=== PATIENT | female | born 1945 | race Caucasian/White ===

== ENCOUNTER 2018-06-07 09:50 | Observation (INO) | payer OTHER, MEDICARE ==
[2018-06-07] MEDS ORDERED: PHENAZOPYRIDINE HCL 200 MG TAB PO ONE (10:11)
[2018-06-07] MEDS ORDERED: ACETAMINOPHEN 500 MG TAB PO ONE (10:11)
[2018-06-07] MEDS ORDERED: ceFAZolin 2 GM/DEXTROSE 100 ML IV ONE (10:11)
[2018-06-07] MEDS ORDERED: GABAPENTIN 300 MG CAP PO ONE (10:11)
[2018-06-07] MEDS ORDERED: LR 1,000 ML IV ONE (10:12)
[2018-06-07] MEDS ORDERED: LIDOCAINE 1% 2 ML INJ ID PRN (10:21)
[2018-06-07] MEDS ORDERED: BUPIVACAINE/EPI 0.5% 30 ML SDV ONE (11:07)
--- NOTE | 2018-06-07 11:16 | PDHPUP ---
History & Physical Update H&P update statement: This history and physical update is based on an assessment of the patient which was completed after admission or registration (within 24 hours), but prior to the surgery/procedure. H&P update: H&P reviewed & patient examined, no change in patient's condition since H&P completed
--- NOTE | 2018-06-07 11:37 | PDANEPAE ---
ANE History of Present Illness 73 year old for hysterectomy ANE Past Medical History - Cardiovascular History Hx Hypertension: Yes Hx Arrhythmias: Yes Hx Chest Pain: No Hx Coronary Artery / Peripheral Vascular Disease: Yes Hx CHF / Valvular Disease: No Hx Palpitations: No Cardiovascular History Comment: cad. mi with stent placed. followed by dr riggs at [facility]- will obtain records - Pulmonary History Hx COPD: No Hx Asthma/Reactive Airway Disease: No Hx Recent Upper Respiratory Infection: No Hx Oxygen in Use at Home: No Hx Sleep Apnea: No Sleep Apnea Screening Result - Last Documented: Negative - Neurologic History Hx Cerebrovascular Accident: No Hx Seizures: No Hx Dementia: No - Endocrine History Hx Diabetes: No Endocrine History Comment: hypothyroidism - Renal History Hx Renal Disorders: Yes Renal History Comment: bladder prolapse currently - Liver History Hx Hepatic Disorders: No - Neurological & Psychiatric Hx Hx Neurological and Psychiatric Disorders: No - Cancer History Hx Cancer: No - Congenital Disorder History Hx Congenital Disorders: No - GI History Hx Gastrointestinal Disorders: Yes Gastrointestinal History Comment: rectal prolapse currently. IBS- uses ibuprofen for inflammation - Other Health History Other Health History: vaginal prolapse currently. wears reading glasses - Chronic Pain History Chronic Pain: No - Surgical History Prior Surgeries: tonsillectomy as child. cardiac stent x1 ANE Review of Systems Review of systems is: negative Review of Systems: - Exercise capacity METS (RN): 4 METS ANE Patient History - Allergies Allergies/Adverse Reactions: No Known Allergies Allergy (Verified 05/24/18 12:06) - Home Medications Home medications: home medication list seen and reviewed Home Medications: Atorvastatin Calcium [Lipitor 40 mg (*)] 80 mg PO HS 05/23/18 [Last Taken 1 Week Ago ~05/31/18] Herbals/Supplements -Info Only 1 ea PO DAILY 05/23/18 [Last Taken 1 Week Ago ~] Ibuprofen [Motrin (*)] 800 mg PO DAILY 05/23/18 [Last Taken 06/07/18] Metoprolol Succinate Xr [Toprol Xl 25 mg (*)] 25 mg PO HS 05/23/18 [Last Taken 1 Week Ago ~05/31/18] Multivitamins [Multivitamin (*)] 1 each PO DAILY 05/23/18 [Last Taken 1 Week Ago ~05/31/18] Nature Thyroid 120mg 120 mg PO DAILY 05/23/18 [Last Taken 06/07/18] Cmp Estradiol Cream 1 mat TP Q2D 05/24/18 [Last Taken 2 Days Ago ~06/05/18] P 180mg/E2 1mg/Test 1mg Tab 1 each PO HS 05/24/18 [Last Taken 1 Day Ago ~] - NPO status NPO Since - Liquids (Date): 06/07/18 NPO Since - Liquids (Time): 09:00 NPO Since - Solids (Date): 06/06/18 NPO Since - Solids (Time): 20:00 - Anes Hx Anes Hx: no prior problems - Smoking Hx Smoking Status: Former smoker - Alcohol Use Alcohol Use: Occasionally - Family Anes Hx Family Anes Hx: none Family Hx Anesthesia Complications: none ANE Labs/Vital Signs - Vital Signs Blood Pressure: 123/90 Heart Rate: 85 Respiratory Rate: 22 O2 Sat (%): 97 Height: 162.56 cm Weight: 59.874 kg ANE Physical Exam - Airway Neck exam: FROM Mallampati Score: Class 1 Mouth exam: normal dental/mouth exam - Pulmonary Pulmonary: no respiratory distress - Cardiovascular Cardiovascular: regular rate and rhythym - ASA Status ASA Status: II ANE Anesthesia Plan Anesthesia Plan: general endotracheal anesthesia
[2018-06-07] MEDS ORDERED: ROCURONIUM 50 MG/5 ML VIAL ONE (11:58)
[2018-06-07] MEDS ORDERED: DEXAMETHASONE 4 MG/ML VIAL ONE (11:58)
[2018-06-07] MEDS ORDERED: LIDOCAINE 2% 2 ML INJ ONE (11:59)
[2018-06-07] MEDS ORDERED: fentaNYL 100 MCG/2 ML INJ ONE ×2 (11:59→12:26)
[2018-06-07] MEDS ORDERED: PROPOFOL 200 MG/20 ML VIAL ONE (11:59)
[2018-06-07] MEDS ORDERED: HYDROmorphONE/DILAUDID 2 MG/ML INJ ONE ×2 (12:38→13:41)
[2018-06-07] MEDS ORDERED: oxyCODONE IR 5 MG TAB PO PRN (13:57)
[2018-06-07] MEDS ORDERED: fentaNYL 100 MCG/2 ML INJ IVP PRN (13:57)
[2018-06-07] MEDS ORDERED: HYDROmorphONE/DILAUDID 1 MG/ML INJ IVP PRN ×2 (13:57→14:08)
[2018-06-07] MEDS ORDERED: NALOXONE HCL 0.4 MG/ML INJ IVP PRN (13:57)
[2018-06-07] MEDS ORDERED: ONDANSETRON 4 MG/2 ML VIAL IVP PRN ×2 (13:57→14:08)
[2018-06-07] MEDS ORDERED: PROMETHAZINE HCL 25 MG/ML INJ IVP PRN (13:57)
[2018-06-07] MEDS ORDERED: HYDROCODONE/APAP 5/325 TAB PO PRN (14:08)
[2018-06-07] MEDS ORDERED: ONDANSETRON DISINTEGRATING 4 MG TAB PO PRN (14:08)
--- NOTE | 2018-06-07 14:08 | POSTOPPROG ---
Post Op Note Date of Operation: 06/07/18 Surgeon: Kirill Lopez Hazardous Materials Analyst: Paula Alvarez Anesthesia: GET(General Endotracheal) Pre-op Diagnosis: Uterovaginal prolapse Post-op Diagnosis: Same Procedure: Robotic hyst/BSO, sacrocolpopexy, TOT sling, cysto Inf/Abcess present in the surg proc area at time of surgery?: No EBL: Minimal Complications: None
[2018-06-07] MEDS ORDERED: LR 1,000 ML IV SCH (14:30)
[2018-06-07] MEDS ORDERED: NALOXONE HCL 0.4 MG/ML INJ ONE (14:51)
--- NOTE | 2018-06-07 14:57 | GOP ---
[f rep st] OPERATIVE REPORT DATE OF OPERATION: 06/07/2018 SURGEON: Kirill Lopez MD NET WASHER: Paula Alvarez CFA. ANESTHESIA: General. PREOPERATIVE DIAGNOSIS: 1. Cystocele. 2. Rectocele. 3. Uterine prolapse. 4. Stress urinary incontinence. POSTOPERATIVE DIAGNOSIS: 1. Cystocele. 2. Rectocele. 3. Uterine prolapse. 4. Stress urinary incontinence. PROCEDURE PERFORMED: FINDINGS: SPECIMENS: Uterus, bilateral tubes, and ovaries. ESTIMATED BLOOD LOSS: Scant. DESCRIPTION OF PROCEDURE: The patient was taken to the operating room. She was identified. General anesthesia was administered and thought to be adequate. She was placed in the lithotomy position an d prepared and draped in normal sterile fashion. A Paige catheter was placed in her bladder. An 8 mm infraumbilical incision was made with a scalpel. The Veress needle with the CO2 gas flowing was advanced into the peritoneal cavity. The abdomen was then insufflated with carbon dioxide gas. The 8 mm trocar followed by the laparoscope were then inserted. The upper abdomen was unremarkable w ith the exception of diffuse diverticulosis of the large intestine. Photos were taken. Two lower po rts were placed on either side under direct visualization. She then was placed in Trendelenburg posi tion and the da Agustina robot docked on the left side. The instruments were brought into the abdominal cavity under direct visualization. The left round ligament was divided. The anterior leaf of the b road ligament was incised toward the bifurcation of the left common iliac vessels. A window was crea ray in the posterior leaf anterior to the left ureter to skeletonize the infundibulopelvic vessels. They were then cauterized and transected. The anterior leaf of the broad ligament was then incised o mp the left uterine vessels and across the cervix. The bladder was gently dissected off the cervix and upper vagina. The left uterine vasculature was then cauterized and transected. The exact same p rocedure was performed on the patient's right side. The uterus was then bivalved to aid in removal t hrough the umbilicus. The uterus and upper three-fourths of the cervix were amputated from the lower 4th of the cervix with the hot bassam. The specimen was placed in the right upper quadrant for late r removal. The colpo probe was placed in the vagina. The bladder was further dissected off the anterior vaginal wall down to the level of the bladder neck. The rectovaginal space was then entered and the rectum dissected off the posterior vaginal wall down to the level of the perineal body. Measurements were t hen obtained and the mesh trimmed to size. The sigmoid colon was then retracted laterally. The peritoneum over the promontory was incised and t he fat pad gently dissected off the anterior longitudinal ligament. The mesh was then brought into t he abdominal cavity. Three sutures of 4-0 [place] were used to attach the distal posterior mesh to the perineal body. Two additional rows of [place] sutures were placed posteriorly. Three rows were placed anteriorly to suture the anterior mesh down to the level of bladder neck and laterally to the paravaginal tissue. The colpo probe was then removed. The sacral arm of the mesh was then placed o mp the promontory and the tension adjusted to resolve the cystocele and rectocele without undue tens ion on the vagina. Two sutures of 2-0 [place] were used to attach the sacral arm of the mesh to the anterior longitudinal ligament at the level of the 1st sacral vertebral body below the intervertebra l disk space. Excess mesh was then trimmed. The peritoneum was then closed over the entire mesh wit h 3-0 V-Loc suture. The robot was then undocked. The specimen removed through the umbilicus. The f ascia was closed with 0 Vicryl, skin with 4-0 Monocryl. A mid urethral incision was then made with a scalpel. Tunnels were created bilaterally out to the ob turator internus muscles. Skin incisions were made over the obturator notches. The Halo trocar was placed through the left skin incision, redirected around the ischial pubic rami and out through the v aginal incision using a vaginal finger as a guide. The same procedure was performed on the patient's right side. The sling was then adjusted to allow a small mid urethral gap. Cystoscopy was then per formed. The sling was noted to be just underneath the muscularis at the level of bladder neck. Deci mena was made to remove the sling. It was gently grasped and removed. The vaginal incision was then closed with 0 Vicryl, skin with 4-0 Monocryl. Vaginal packing was then placed. Anesthesia was reve rsed and patient taken to PACU awake in stable condition. PROCEDURES: 1. Robotic-assisted laparoscopic hysterectomy, bilateral salpingo-oophorectomy. 2. Sacral colpopexy with mesh. 3. Repair of cystocele and rectocele. 4. Transobturator sling. 5. Cystoscopy. COMPLICATIONS: None. DISPOSITION: Patient stable to PACU. /[id number]/MODL
[2018-06-07] MEDS ORDERED: ONDANSETRON 4 MG/2 ML VIAL ONE (15:07)
[2018-06-07] MEDS ORDERED: PROMETHAZINE HCL 25 MG/ML INJ ONE (15:11)
--- NOTE | 2018-06-07 15:40 | POSTANESTH ---
Post Anesthetic Evaluation Cardiovascular Status: Normal, Stable Respiratory Status: Normal, Stable Level of Consciousness/Mental Status: Can Participate in Eval, Moderately Sleepy Pain Control: Adequate, Prn Tx Ordered Nausea/Vomiting Control: Adequate, Prn Tx Ordered Complications Possibly Related to Anesthesia: Other, See Comments (Pt stable on arrival to PACU. Upon removal of OA by nursing staff, pt appeared to obstruct airway with stridor and desaturation. Nursing staff gave PP with ambu and called for help. Upon arrival pt was tachycardic with HR 170, confused and disarthric. Pt given 100% nonrebreather and then 80 mcg, 40 mcg narcan. Pt became more response. HR decreased to 105, clear SR, one more tachy event to 155 aprox. 60 seconds. Hypertensive during event. Pt became progesssively calmer with stable VS HR 73, BP 118/72, sat 95 on NC. Limited neuro exam normal. 12 lead EKG NSR with T wave inversions v2-v6. Possible airway event, verses cardiac event. Possible neuro event. Hospitalist taking over care and pt being transfered to ICU.)
[2018-06-07] MEDS ORDERED: NS 1,000 ML IV SCH (15:45)
[2018-06-07] MEDS ORDERED: PANTOPRAZOLE SODIUM 40 MG VIAL IVP SCH (15:45)
--- NOTE | 2018-06-07 15:50 | PDGENHP ---
History and Physical - Chief Complaint Hypotension/tachycardia - History of Present Illness Patient is a 73-year-old female admitted for a laparoscopic hysterectomy who postoperatively developed hypotension/tachycardia and hypoxia. Per report from the anesthesiologist the surgery went uneventfully. Postoperatively she was somewhat somnolent. Her oral airway was removed in the PACU and subsequently she desatted to the 70s. Per the nurses she developed laryngeal spasm and the anesthesiologist came to the bedside. They bag masked her few times and her oxygen saturations normalized however she developed tachycardia with rate into the 170s. The tachyarrhythmia was transient resolved spontaneously however the patient was still somnolent. She was given a dose of 0.8 of Narcan and then another of 0.4 which was effective at waking the patient up. At that point her vital signs normalized. During my interview in the PACU the patient is resting quietly. Vital signs are normal she is still somnolent however. The nurses attribute this to her having just received a dose of Phenergan. She is unable to provide any history. History Information - Allergies/Home Medication List Allergies/Adverse Reactions: No Known Allergies Allergy (Verified 05/24/18 12:06) Home Medications: Atorvastatin Calcium [Lipitor 40 mg (*)] 80 mg PO HS 05/23/18 [Last Taken 1 Week Ago ~05/31/18] Herbals/Supplements -Info Only 1 ea PO DAILY 05/23/18 [Last Taken 1 Week Ago ~] Ibuprofen [Motrin (*)] 800 mg PO DAILY 05/23/18 [Last Taken 06/07/18] Metoprolol Succinate Xr [Toprol Xl 25 mg (*)] 25 mg PO HS 05/23/18 [Last Taken 1 Week Ago ~05/31/18] Multivitamins [Multivitamin (*)] 1 each PO DAILY 05/23/18 [Last Taken 1 Week Ago ~05/31/18] Nature Thyroid 120mg 120 mg PO DAILY 05/23/18 [Last Taken 06/07/18] Cmp Estradiol Cream 1 mat TP Q2D 05/24/18 [Last Taken 2 Days Ago ~06/05/18] P 180mg/E2 1mg/Test 1mg Tab 1 each PO HS 05/24/18 [Last Taken 1 Day Ago ~] I have personally reviewed and updated: family history, medical history, social history, surgical history - Past Medical History coronary artery disease, myocardial infarction (CAD, with stemi in January 2014 , complicated by Vifb arrest. SCAR placed to LAD. CHF post OH with return of LVEF. ) Additional medical history: Coronary artery disease, hypertension, hypothyroid, myocardial infarction, arthritis, osteoporosis - Surgical History Additional surgical history: Drug-eluting stent placed to the LAD. Tonsillectomy - Family History Positive for: CAD - Social History Smoking Status: Former smoker Alcohol Use: Occasionally Review of Systems Review of Systems: Patient is somnolent and unable to provide review of systems Physical Exam Physical Exam: Temp Pulse Resp BP Pulse Ox 36 C 85 22 H 123/90 H 97 06/07/18 14:16 06/07/18 11:37 06/07/18 11:37 06/07/18 11:37 06/07/18 11:37 O2 (L/minute) 6 Constitutional: no apparent distress Eyes: PERRL Ears, Nose, Mouth, Throat: moist mucous membranes, hearing normal Cardiovascular: regular rate and rhythym Respiratory: no respiratory distress Gastrointestinal: normoactive bowel sounds Genitourinary: thapa in urethra Skin: warm Musculoskeletal: generalized weakness (somnolent. ) Neurologic: other (somnolent and unable to participate in exam. no visible focal deficits. ) Psychiatric: other (sedated postoperatively. ) Lymph, Heme, Immunologic: no cervical LAD Lab Data & Imaging Review 06/07/18 17:00 06/07/18 17:00 POC Glucose 171 mg/dL (70-100) H 06/07/18 14:52 Assessment & Plan Assessment: 73-year-old female past medical history coronary disease who developed transient tachycardia and hypotension in the PACU after hysterectomy Tachycardia/abnormal ECG- seems to have resolved spontaneously. rhythm strip reviewed, and pre and post op ECG reviewed. She has new twi in lateral leads on ecg. May be secondary to post op hypoxia. Per nursing patient self stopped her lopressor a week prior to surgery. currently normotensive -repeat ECG -stat troponin -TTE in am -CBC -BMP -Monitor in ICU on telemetry -Cardiology consultation Hypoxia- resolved. Likely due to laryngospasm after taking out oral air way possible compounded by narcotics and anesthesia. Currently saturating well. She does have crepitus on examination in her chest which is likely 2/2 to insufflation during laparoscopy. Will check a CXR to ensure no other pathology Somnolence- likely due to anesthesia and narcotics. per report she woke up with narcan transiently but became somnolent again. Currently is arousable, oriented to date and place and person. -minimize narcotics -if develops respiratory depression, give narcan and consider narcan gtt. CAD- hx of stemi with SCAR placed to LAD in 2013, complicated by Vfib arrest and cardiogenic shock. Her EF was initially 40-50% but per records she recovered normal LVEF on most recent TTE. On asa 81, lipitor 80, and toprol XL 25. Last TTE in 2014. -resume asa, statin, bb when pressures normalized uterine prolapse- status post laparascopic SUNSHINE. management per gynecology. PPX- SCDs, No heparin Fluids- NS Lytes- checking now Nutrition- NPO until more awake Cor- Full per chart review Dispo- monitor in ICU for hypoxia, tachycardia, and new ecg changes. I spent 40 minutes of critical care time on management of this patient with over half spent on direct patient care.
--- NOTE | 2018-06-07 16:49 | CPEKG ---
Test Reason : OPEN Blood Pressure : / mmHG Vent. Rate : 076 BPM Atrial Rate : 076 BPM P-R Int : 166 ms QRS Dur : 095 ms QT Int : 400 ms P-R-T Axes : 081 082 062 degrees QTc Int : 450 ms Sinus rhythm Probable left atrial enlargement Borderline right axis deviation ST depression anterior-lateral leads. Confirmed by Adonay Teixeira ([id number]) on 06/07/2018 4:49:08 PM Referred By: Arslan Mccarthy Confirmed By:Adonay Teixeira
[2018-06-07] MEDS: KETOROLAC 15 MG/1 ML SDV IVP SCH ×2 (17:17→23:21)
[2018-06-07 17:26] LABS: PLATELET COUNT 269 10^3/uL (150-400)
[2018-06-07] MEDS: SIMETHICONE 80 MG TAB CHEW PO SCH ×2 (19:37→20:49)
[2018-06-07] MEDS: DOCUSATE SODIUM 100 MG CAP PO SCH (20:48)
[2018-06-07] MEDS ORDERED: METOPROLOL SUCCINATE XR 25 MG TAB PO SCH (21:00)
[2018-06-08] MEDS: KETOROLAC 15 MG/1 ML SDV IVP SCH ×2 (05:48→11:18)
[2018-06-08 06:33] LABS: PLATELET COUNT 253 10^3/uL (150-400)
--- NOTE | 2018-06-08 07:28 | PDCARCONS ---
Cardiology Consult Reason for Consult: Late dictation, patient was seen 06/07/2018 at 6:00 p.m. Abnormal ECG Chief Complaint: Patient offers no complaints, daughter at bedside Requesting Physician: Dr. Arslan Clifton History of Present Illness: 73-year-old female, prior history of coronary artery disease status post acute NE, status post stenting to LAD. She is usually followed up at [facility] She was here for a routine laparoscopic hysterectomy, developed transient tachycardia and hypotension in PACU associated with hypoxia and laryngospasm. Her heart rate was briefly in the 170s. ECG was done which showed anterolateral ST abnormalities. A troponin level was obtained which was elevated and therefore I was called to consult. I visited with the patient in the ICU. Patient's daughter was present. Patient was somnolent but arousable and on repeated questioning denied any chest discomfort or any other complaints. History Information - Allergies/Home Medication List Allergies/Adverse Reactions: No Known Allergies Allergy (Verified 05/24/18 12:06) Home Medications: Atorvastatin Calcium [Lipitor 40 mg (*)] 80 mg PO HS 05/23/18 [Last Taken 1 Week Ago ~05/31/18] Herbals/Supplements -Info Only 1 ea PO DAILY 05/23/18 [Last Taken 1 Week Ago ~] Ibuprofen [Motrin (*)] 800 mg PO DAILY 05/23/18 [Last Taken 06/07/18] Metoprolol Succinate Xr [Toprol Xl 25 mg (*)] 25 mg PO HS 05/23/18 [Last Taken 1 Week Ago ~05/31/18] Multivitamins [Multivitamin (*)] 1 each PO DAILY 05/23/18 [Last Taken 1 Week Ago ~05/31/18] Nature Thyroid 120mg 120 mg PO DAILY 05/23/18 [Last Taken 06/07/18] Cmp Estradiol Cream 1 mat TP Q2D 05/24/18 [Last Taken 2 Days Ago ~06/05/18] P 180mg/E2 1mg/Test 1mg Tab 1 each PO HS 05/24/18 [Last Taken 1 Day Ago ~] I have personally reviewed and updated: family history, medical history, social history Past Medical History: - Past Medical History coronary artery disease - Social History Smoking Status: Former smoker Alcohol Use: Occasionally Physical Exam Physical Exam: Temp Pulse Resp BP Pulse Ox 36.9 C 60 15 107/65 98 06/08/18 04:00 06/08/18 06:00 06/08/18 06:00 06/08/18 06:00 06/08/18 06:00 O2 (L/minute) 3 FIO2 (%) 3 Constitutional: no apparent distress, appears nourished Eyes: PERRL, EOMI Ears, Nose, Mouth, Throat: moist mucous membranes, hearing normal Cardiovascular: regular rate and rhythym, systolic murmur Respiratory: no respiratory distress Gastrointestinal: normoactive bowel sounds Genitourinary: no bladder fullness Skin: warm Neurologic: AAOx3 Psychiatric: interacting appropriately, not anxious, not encephalopathic Lab and Imaging 06/08/18 06:00 06/08/18 06:00 WBC 17.43 10^3/uL (3.80-9.50) H 06/08/18 06:00 RBC 4.03 10^6/uL (4.18-5.33) L 06/08/18 06:00 Hgb 11.9 g/dL (12.6-16.3) L 06/08/18 06:00 Hct 35.3 % (38.0-47.0) L 06/08/18 06:00 MCV 87.6 fL (81.5-99.8) 06/08/18 06:00 MCH 29.5 pg (27.9-34.1) 06/08/18 06:00 MCHC 33.7 g/dL (32.4-36.7) 06/08/18 06:00 RDW 13.5 % (11.5-15.2) 06/08/18 06:00 Plt Count 253 10^3/uL (150-400) 06/08/18 06:00 MPV 10.0 fL (8.7-11.7) 06/08/18 06:00 Neut % (Auto) 82.5 % (39.3-74.2) H 06/08/18 06:00 Lymph % (Auto) 9.2 % (15.0-45.0) L 06/08/18 06:00 Hall % (Auto) 7.8 % (4.5-13.0) 06/08/18 06:00 Eos % (Auto) 0.1 % (0.6-7.6) L 06/08/18 06:00 Baso % (Auto) 0.1 % (0.3-1.7) L 06/08/18 06:00 Nucleat RBC Rel Count 0.0 % (0.0-0.2) 06/08/18 06:00 Absolute Neuts (auto) 14.38 10^3/uL (1.70-6.50) H 06/08/18 06:00 Absolute Lymphs (auto) 1.60 10^3/uL (1.00-3.00) 06/08/18 06:00 Absolute Monos (auto) 1.36 10^3/uL (0.30-0.80) H 06/08/18 06:00 Absolute Eos (auto) 0.01 10^3/uL (0.03-0.40) L 06/08/18 06:00 Absolute Basos (auto) 0.02 10^3/uL (0.02-0.10) 06/08/18 06:00 Absolute Nucleated RBC 0.00 10^3/uL (0-0.01) 06/08/18 06:00 Immature Gran % 0.3 % (0.0-1.1) 06/08/18 06:00 Immature Gran # 0.06 10^3/uL (0.00-0.10) 06/08/18 06:00 RBC/WBC/PLT Morphology TNP 06/07/18 17:00 Platelet Estimate TNP 06/07/18 17:00 Sodium 134 mEq/L (135-145) L 06/08/18 06:00 Potassium 4.7 mEq/L (3.5-5.2) 06/08/18 06:00 Chloride 106 mEq/L (97-110) 06/08/18 06:00 Carbon Dioxide 23 mEq/l (22-31) 06/08/18 06:00 Anion Gap 5 mEq/L (6-14) L 06/08/18 06:00 BUN 10 mg/dL (7-23) 06/08/18 06:00 Creatinine 0.6 mg/dL (0.6-1.0) 06/08/18 06:00 Estimated GFR > 60 06/08/18 06:00 Glucose 96 mg/dL (70-100) 04/04/19 06:00 POC Glucose 171 mg/dL (70-100) H 06/07/18 14:52 Calcium 8.4 mg/dL (8.5-10.4) L 06/08/18 06:00 Phosphorus 4.2 mg/dL (2.5-4.5) 06/07/18 17:00 Magnesium 1.7 mg/dL (1.6-2.3) 06/07/18 17:00 Troponin I 0.338 ng/mL (0.000-0.034) H 06/08/18 06:00 EKG additional interpertation: Sinus rhythm. 1st EKG, paper copy only showed ST depression and T inversions in leads V3 to V6. 2nd ECG showed resolution of T inversions and decreased ST depression, 1 mm, in lead V3 to V6 Telemetry: Normal sinus rhythm Echocardiogram: Pending A/P Assessment: 1. Coronary artery disease, prior ST-elevation NE and LAD stent in 2013, normalization of LV ejection fraction. 2. Mild troponin elevation with anterolateral ST T wave changes 3. Hemodynamically stable Plan: 73-year-old female with above-noted findings and medical history with mild troponin elevation. ECG changes that were present previously in the PACU are resolving. She is hemodynamically stable. She denies chest discomfort. Mild elevation in troponin likely related to global ischemia related to hypotension and hypoxia in the postoperative state. Recommendations: 1. Resume aspirin. Resume beta-blockers . 2. Hold off on systemic anticoagulation given recent surgery and patient hemodynamically stable and without chest discomfort 3. Echocardiogram 4. Will follow with you, will need coronary evaluation with either myocardial perfusion stress testing or coronary angiography in the near future.
[2018-06-08] MEDS: SIMETHICONE 80 MG TAB CHEW PO SCH ×2 (08:56→13:27)
[2018-06-08] MEDS: DOCUSATE SODIUM 100 MG CAP PO SCH (08:57)
[2018-06-08] MEDS ORDERED: MULTIVITAMINS 1 EACH TAB PO SCH (09:00)
[2018-06-08] MEDS ORDERED: PANTOPRAZOLE SODIUM 40 MG VIAL IVP SCH (09:00)
[2018-06-08] MEDS ORDERED: PANTOPRAZOLE SODIUM 40 MG TAB PO SCH (09:00)
--- NOTE | 2018-06-08 09:31 | HOSPPROG ---
Hospitalist Progress Note Assessment/Plan: #Acute hypoxic resp insufficiency: resolved. 2/2 medications #NSTEMI: asymptomatic, Cards evaluating. Trop peaked 0.55. Echo pending. Cont current medications. Will need stress test or cath -will FU with her Air Control Electronics Operator in [place] #Vaginal prolapse: s/o laparoscopic SUNSHINE. Thapa in place per Maintenance Construction Helper No additional recs now. Stable for DC if ok with cards. Please call if any questions. Subjective: no chest pain Objective: Vital Signs Temp Pulse Resp BP Pulse Ox 36.5 C 67 23 H 104/57 L 94 06/08/18 07:34 06/08/18 07:34 06/08/18 07:34 06/08/18 07:34 06/08/18 07:34 Laboratory Results 06/08/18 06:00 06/08/18 06:00 06/07/18 06/08/18 06/09/18 05:59 05:59 05:59 Intake Total 2450 Output Total 1750 Balance 700 - Time Spent With Patient Time Spent with Patient: greater than 25 minutes Time Spent with Patient: Greater than 25 minutes spent on this patients care, greater than 50% of time spent counseling, educating, and coordinating care regarding the above mentioned plan. - Physical Exam Constitutional: no apparent distress Eyes: PERRL Ears, Nose, Mouth, Throat: moist mucous membranes Cardiovascular: regular rate and rhythym Respiratory: no respiratory distress Gastrointestinal: normoactive bowel sounds, other (lap incision sites CDI) Genitourinary: thapa in urethra Skin: warm Musculoskeletal: full muscle strength Neurologic: AAOx3, CN II-XII Intact Psychiatric: interacting appropriately ICD10 Worksheet Patient Problems: Problems Problem Status Onset Lateral cystocele Acute
--- NOTE | 2018-06-08 09:34 | SOAPPROG ---
SOAP Progress Note Assessment/Plan: Assessment: Doing well from post op stand point. No further cardiorespiratory issues. Plan: 06/08/18 09:33 Discharge home if o.k. from cardiology standpoint. Continue Paige until Tuesday when will be removed in office. Discharge instructions reviewed. Subjective: Events post op reviewed. This morning feeling well with no complaints. No pain, CP, or SOB. Would like to go home. Objective: Vital Signs Temp Pulse Resp BP Pulse Ox 36.5 C 67 23 H 104/57 L 94 06/08/18 07:34 06/08/18 07:34 06/08/18 07:34 06/08/18 07:34 06/08/18 07:34 Laboratory Results 06/08/18 06:00 06/08/18 06:00 06/07/18 06/08/18 06/09/18 05:59 05:59 05:59 Intake Total 2450 Output Total 1750 Balance 700 - Pending Discharge Pending Discharge Within 24 Hours: Yes Pending Discharge Date: 06/09/18 Pending Discharge Time: 11:00 Physical Exam - Physical Exam General Appearance: WD/WN, alert, no apparent distress Respiratory: lungs clear Cardiac/Chest: regular rate, rhythm Abdomen: normal bowel sounds, non-tender, soft Skin: normal color, warm/dry Neuro/Psych: no motor/sensory deficits, alert, normal mood/affect, oriented x 3 (Incisions clean, dry, and intact) ICD10 Worksheet Patient Problems: Problems Problem Status Onset Lateral cystocele Acute Rectocele Acute - ICD10 Problem Qualifiers (1) Rectocele
--- NOTE | 2018-06-08 11:36 | ASMTCMCOM ---
CM Note CM Note Notes: Patient is s/p NSTEMI. Also s/p SUNSHINE w vaginal prolapse. She has a Paige in place until Monday 06/12. Patient is normally independent. She will go home w her daughter Earle. No other d/c needs anticipated. Date Signed: 06/08/2018 11:35 AM Electronically Signed By:Rhona Barker RN
[2018-06-08 12:15] VITALS: BP 105/61
--- NOTE | 2018-06-08 14:18 | PDCARPN ---
Cardiology Progress Note Chief Complaint: Patient doing well today. Minimal abdominal pains today. Assessment/Plan: Assessment: 06-08-18 Patient doing well today. No cardiovascular complaints. Echocardiography with normal systolic function and normal wall motion. Troponin peaked at 0.544, but dropped today to 0.338. No chest pains or pressure. No PND or orthopnea. Patient reportedly had stress testing pre operatively and no further testing was recommended (patient is typically seen by [facility] [place] ). The minimal elevation in troponin likely secondary to perfusion mismatch with elevated heart rates noted post operatively. 06-07-18 73-year-old female, prior history of coronary artery disease status post acute ID, status post stenting to LAD. She is usually followed up at [facility]. She was here for a routine laparoscopic hysterectomy, developed transient tachycardia and hypotension in PACU associated with hypoxia and laryngospasm. Her heart rate was briefly in the 170s. ECG was done which showed anterolateral ST abnormalities. A troponin level was obtained which was elevated and therefore I (Dr. Fred Saha) was called to consult. Plan: (1) Given following with Avis (and reports of pre operative stress testing) would have patient follow up with her primary cardiology team - no wall motion abnormalities were noted on echocardiography and troponin trend has been down (2) Would maintain therapy on ASA with history of CAD and PCI (3) Ensure therapy on Toprol is resumed (4) Patient was in agreement with these plans. Subjective: No cardiovascular complaints today. Family at bedside Reviewed/Discussed With: family Objective: Vital Signs (8 Hrs) Temp Pulse Resp BP Pulse Ox 06/08/18 12:00 37.2 C 77 14 105/61 97 06/08/18 10:00 77 14 97/62 L 92 06/08/18 07:34 36.5 C 67 23 H 104/57 L 94 Intake/Output (24 Hrs) 06/07/18 06/08/18 06/09/18 05:59 05:59 05:59 Intake Total 2450 Output Total 1750 Balance 700 Intake: Oral (ml) 750 IV Intake (ml) 1700 Output: Urine (ml) 1700 Catheter 1700 Estimated Blood Loss (ml) 50 Other: Weight 59.874 kg Result Diagrams: 06/08/18 06:00 06/08/18 06:00 Cardiac Labs: Cardiac Lab Results (72 Hrs) 06/08/18 06/08/18 06/07/18 06:00 00:25 17:00 Troponin I 0.338 H 0.544 H 0.153 H EKG: From yesterday : sinus rhythm with non specific ST/T wave changes noted Telemetry: Sinus rhythm Echocardiogram: Normal LVEF with normal wall motion and no gross valve pathology - Physical Exam Constitutional: WDWN, healthy appearing, no apparent distress Eyes: PERRL, EOMI Ears, Nose, Mouth, Throat: moist mucous membranes Cardiovascular: regular rate and rhythm, no murmurs, no rubs, no gallops, pulses symmetric bilat, No jugular vein distention Peripheral Pulses: 2+: dorsalis-pedis (R), dorsalis-pedis (L) Respiratory: clear to auscultate bilat, no crackles, no wheezes Gastrointestinal: tenderness Skin: no rashes, no edema Musculoskeletal: no muscular tenderness Neurologic: AAOx3, CN II-XII grossly intact Psychiatric: cooperative, interactive, following commands ICD10 Worksheet Patient Problems: Problems Problem Status Onset Lateral cystocele Acute
--- NOTE | 2018-06-09 09:48 | CPEKG ---
Test Reason : post op Blood Pressure : / mmHG Vent. Rate : 085 BPM Atrial Rate : 086 BPM P-R Int : 171 ms QRS Dur : 094 ms QT Int : 359 ms P-R-T Axes : 069 080 -43 degrees QTc Int : 427 ms Sinus rhythm T wave inversion anterior-lateral leads, consider anterior-lateral ischemia. Confirmed by Adonay Teixeira ([id number]) on 06/09/2018 9:47:22 AM Referred By: Arslan Mccarthy Confirmed By:Adonay Teixeira
--- NOTE | 2018-06-09 12:33 | GDS ---
[f rep st] DISCHARGE SUMMARY DISCHARGE DIAGNOSES: 1. Chest pain, acute hypoxemic respiratory failure. 2. Coronary artery disease, status post stent to left anterior descending. 3. Vaginal prolapse, status post laparoscopic total abdominal hysterectomy. HISTORY OF PRESENT ILLNESS: A 73-year-old female with history of CAD with prior stent to LAD, who un derwent elective laparoscopic hysterectomy by Dr. Lopez, who postoperatively developed hypotension, tachycardia, and hypoxia. She was somnolent after the procedure. When her airway was removed, she d esaturated to the 70s. Per the nurse, she developed a laryngeal spasm. She was tachycardic to the 1 70s. She was given a dose of 0.8 of Narcan and another of 0.4, which was effective at waking the pat ient up. HOSPITAL COURSE BY PROBLEM: 1. Acute hypoxemic respiratory failure: Secondary to sedation with anesthesia, as well as laryngeal spasm. She did not require intubation. Now on room air. 2. NSTEMI. Troponin peaked at 0.544: Denies chest pain. She has a history of CAD, but EKG was samia ssuring. Cardiology evaluated. They recommended she follow up with her primary timber watchman in [facility]. Resume aspirin, statin, and metoprolol. Dr. Lopez with Gynecology was okay with aspirin afte r surgery. 3. Vaginal prolapse: Status post laparoscopic total abdominal hysterectomy. Discharge instructions per Dr. Lopez. DISPOSITION: The patient is stable for discharge home. MEDICATIONS: See medication reconciliation. PHYSICAL EXAM: VITAL SIGNS: Temperature 37.2, blood pressure 105/61, heart rate in the 70s, respira tions 16, and 97% on room air. GENERAL: She is well appearing, in no acute distress. HEENT: PERRL A. Moist mucous membranes. CV: Regular rate and rhythm. No murmurs, gallops, or rubs. LUNGS: Cl ear. ABDOMEN: Laparoscopic surgical incision is clean, dry, and intact. MUSCULOSKELETAL: 5/5. MAIRA ROLOGICAL: 2 through 12 intact. TIME SPENT ON DISCHARGE: Greater than 35 minutes coordinating with Cardiology, as well as Gynecology . /[id number]/MODL
== END 2018-06-08 15:45 | disposition home or self-care (01) ==
LOC: F3N 09:50 → MERGE 12:00 → F2N 15:52
PROVIDERS: ADMIT Obstetrics & Gynecology; ATTEND Internal Medicine
DX: N81.2 Incomplete uterovaginal prolapse (principal); N39.3 Stress incontinence (female) (male); J96.01 Acute respiratory failure with hypoxia; R07.9 Chest pain, unspecified; I25.10 Atherosclerotic heart disease of native coronary artery without angina pectoris; I95.9 Hypotension, unspecified; Z95.5 Presence of coronary angioplasty implant and graft; Z87.891 Personal history of nicotine dependence
CPT/HCPCS: 57265; 57425; 58571; 71045; 93005; 93306; C1763; C1771; J0690; J1100; J1170; J1885; J2310; J2550; J2704; J3010; J2405